=== PATIENT | male | born 1945 | race Caucasian/White ===

== ENCOUNTER → 2020-07-07 14:41 | Outpatient (CLI) | payer MEDICARE, OTHER, SELFPAY ==
[2020-07-07 13:29] VITALS: BMI 28.0
--- NOTE | 2020-07-08 | ASPS_PTH ---
PATIENT: YESICA BREAUX LOC: [facility] U#:[id number] AGE/SX: 80/M ROOM: RE07/07/[address]: Dr. David Moore MD : 1945 BED: DIS: SPEC #: [id number] RECD: 07/08/20 10:29 STATUS: HELIO KANG #: [id number] HUNTER: 07/08/20 00:[address]: David Moore DEPT: CYTOLOGY RECD BY: Raffy Mathew ENTERED: 07/08/20 10:30 SP TYPE: ASPIRATION OTHR DR: MD Dr. Rustam Ames MD Tissues: Thyroid gland, NOS Procedures: Special Stain Group II Cytology Other HEADER OPERATION: Ultrasound-guided fine needle aspiration left thyroid PRE-OP DIAGNOSIS: Multinodular goiter E04.2 TISSUE SUBMITTED: Fine needle aspiration left thyroid (10 slides) DIAGNOSIS CYTOLOGY Left thyroid nodule, ultrasound-guided FNA (smears): Consistent with benign follicular nodule. Adequate for evaluation. See comment. YENIFER:lurdes 07/09/20 COMMENT Correlation with clinical, radiologic findings and appropriate follow up are necessary. CYTOLOGY STUDY Slides are reviewed. CYTOLOGY GROSS Received are ten smears labeled with the patient's name and designated per the requisition as left thyroid. Submitted for staining. / lurdes 07/08/20 TC:5 CPT: 32958
== END ==
PROVIDERS: PCP Family Medicine; Referring Provider Surgery; Visit Provider Surgery
DX: E04.2 Nontoxic multinodular goiter (principal)
CPT/HCPCS: 88161; 88313

== ENCOUNTER → 2025-01-27 | Outpatient (CLI) | payer MEDICARE, OTHER, SELFPAY ==
[2025-01-27 18:03] LABS: International Normalized Ratio 1.1; Partial Thromboplast Time 30.4 Seconds (24.1-36.2); Prothrombin Time (Protime)PT. 14.3 SECONDS (11.7-14.9)
[2025-01-27 21:35] LABS: Vitamin B12 483 pg/mL (180-914)
== END | disposition home or self-care (01) ==
LOC: MTLAB 14:54
PROVIDERS: PCP Family Medicine
DX: R26.89 Other abnormalities of gait and mobility (principal); R42 Dizziness and giddiness
CPT/HCPCS: 36415; 82607; 82652; 82747; 85014; 85610; 85730; A4216

== ENCOUNTER → 2025-03-06 | Outpatient (CLI) | payer MEDICARE, OTHER, SELFPAY ==
--- NOTE | 2025-03-06 15:29 | MRI_ITS ---
PROCEDURE: BRAIN WITHOUT CONTRAST 03/06/2025 REASON FOR EXAM: DIZZINESS TECHNIQUE: Noncontrast brain MRI. Multiplanar and multisequence images were obtained. COMPARISON: None available FINDINGS: No acute infarct, mass effect or evidence of intracranial hemorrhage. The ventricles are within limits and midline. Mild patchy bilateral periventricular white matter foci of T2 prolongation statistically would represent chronic small-vessel ischemic change and appears within limits for age. Mild volume loss, atrophy. Major intracranial flow voids appear within limits. There appears to be a dominant left vertebral artery and unclear if the right vertebral ends in PICA. Internal auditory canals appear within limits. Mastoid and middle ears appear within limits. The temporal lobes and temporal horns appear symmetric. MRI/Brain without Contrast IMPRESSION: No evidence of acute intracranial process as above. Age commensurate chronic and involutional changes. Reading Location: [id number]
== END | disposition home or self-care (01) ==
LOC: MRI 15:25
PROVIDERS: PCP Family Medicine
DX: R42 Dizziness and giddiness (principal); R26.89 Other abnormalities of gait and mobility
CPT/HCPCS: 70551